=== PATIENT | male | born 1985 | race African-American/Black ===

== ENCOUNTER 2021-12-10 08:37 | Day surgery (SDC) | payer OTHER ==
[2021-12-03 14:12] VITALS: BMI 22.4
[2021-12-10] MEDS ORDERED: FENTANYL CITRATE/PF 50 MCG/ML VIAL ONE ×3 (09:25→11:17)
[2021-12-10] MEDS ORDERED: MIDAZOLAM HCL 2 MG/2 ML SINGLE DOSE VIAL ONE (09:25)
[2021-12-10] MEDS ORDERED: PROPOFOL 20 ML ONE ×2 (09:35→10:30)
[2021-12-10] MEDS ORDERED: ceFAZolin SODIUM 1 GM VIAL ONE (09:44)
[2021-12-10] MEDS ORDERED: DEXAMETHASONE SOD PHOSPHATE 4 MG/1 ML VIAL ONE (09:44)
[2021-12-10] MEDS ORDERED: ONDANSETRON 4 MG/2 ML VIAL ONE ×2 (09:44→11:17)
[2021-12-10] MEDS ORDERED: GUM MASTIC/STORAX/MSAL/ALCOHOL 1 DRP DROPSBTL MC ONE (10:29)
[2021-12-10] MEDS ORDERED: BUPIVACAINE HCL/PF 0.25% (2.5MG/ML) 10 ML VIAL STI ONE (10:34)
[2021-12-10] MEDS ORDERED: LACTATED RINGERS SOLUTION 1,000 ML IV SCH (10:45)
[2021-12-10] MEDS ORDERED: ONDANSETRON 4 MG/2 ML VIAL IVPUSH PRN (10:45)
[2021-12-10] MEDS ORDERED: oxyCODONE HCL 5 MG TABLET PO PRN ×2 (10:45→11:04)
[2021-12-10] MEDS ORDERED: BUPIVACAINE HCL/PF 0.25% (2.5MG/ML) 10 ML VIAL ONE (10:58)
[2021-12-10] MEDS ORDERED: KETOROLAC TROMETHAMINE 30 MG/1 ML VIAL ONE (11:37)
[2021-12-10] MEDS ORDERED: KETOROLAC TROMETHAMINE 30 MG/1 ML VIAL IVPUSH ONE (11:45)
[2021-12-10] MEDS ORDERED: oxyCODONE HCL 5 MG TABLET ONE (12:07)
[2021-12-10 12:26] VITALS: PULSE 62; RESP 16; TEMP 98.1
[2021-12-10 12:59] VITALS: BP 118/82
== END 2021-12-10 13:05 | disposition home or self-care (01) ==
LOC: FASU 08:37
PROVIDERS: ATTEND Orthopaedic Surgery Hand Surgery
PROC: 0MQ70ZZ Repair Right Hand Bursa and Ligament, Open Approach (ICD-10-PCS; principal; 2021-12-10 09:50)
DX: S63.641A Sprain of metacarpophalangeal joint of right thumb, initial encounter (principal); X58.XXXA Exposure to other specified factors, initial encounter; Y92.9 Unspecified place or not applicable; Y93.9 Activity, unspecified
CPT/HCPCS: 26540; C1713; 94760